=== PATIENT | female | born 1995 | race Caucasian/White ===

== ENCOUNTER 2017-09-18 21:22 | Observation (INO) | payer OTHER ==
--- NOTE | 2017-09-18 22:28 | RAD ---
UPRIGHT PORTABLE CHEST 09/18/17 HISTORY: 22-year-old female with chest pain, shortness of breath. FINDINGS: The heart size is normal. The lungs are clear. IMPRESSION: No acute intrathoracic disease. POS: [facility]
[2017-09-18 22:33] LABS: #Lymphocytes 0.9 thou/uL (1.20-3.40); #Monocytes 0.8 thou/uL (0.11-0.59); #Neutrophils 6.5 thou/uL (1.40-6.50); %Basophils 0.1 % (0.0-1.0); %Eosinophils 0.1 % (0.0-10.0); %Monocytes 9.2 % (0.0-10.0); Hematocrit 42.3 % (36.0-47.0); Mean Platelet Volume 7.2 fL (7.4-10.4); Red Blood Cell (RBC) Count 4.45 mill/uL (4.20-5.40); White Blood Cell (WBC) Count 8.2 thou/uL (4.8-10.8)
[2017-09-18] MEDS ORDERED: Lorazepam 2 MG/ML VIAL ONE (22:41)
[2017-09-18 22:42] LABS: ALT (SGPT) 107 U/L (8-55); AST (SGOT) 184 U/L (5-34); Alkaline Phosphatase 190 U/L (40-150); Anion Gap 15 mmol/L (10-20); BUN (Urea Nitrogen) 9 mg/dL (7.0-18.7); Bilirubin, Total 1.1 mg/dL (0.2-1.2); Calc. Creatinine Clearance 0 mL/min (70-130); Carbon Dioxide 23 mmol/L (22-29); Chloride 103 mmol/L (98-107); Estimated GFR-MDRD Greater than 90; Globulin 3.6 g/dL (2.4-3.5); Lipase 6 U/L (8-78)
[2017-09-18 22:46] LABS: Troponin I Less than 0.010 ng/mL (< 0.028)
[2017-09-18 23:11] LABS: Bilirubin Negative (Negative); Blood, Urine Negative (Negative); Glucose, Urine (Dipstick) Negative (Negative); Ketone, Urine > or equal to 80 mg/dL (Negative); Nitrite Negative (Negative); Protein, Urine (Dipstick) Negative (Neg-Trace)
[2017-09-19] MEDS ORDERED: Piperacillin/Tazobactam 3.375 GM VIAL ONE (01:18)
[2017-09-19] MEDS ORDERED: NS 0.9% w/ 40 MEQ KCL 1,000 ML IV SCH (01:30)
[2017-09-19] MEDS ORDERED: Piperacillin/Tazobactam 3.375 GM in Sodium Chloride 0.9% 100 ML IVPB SCH (01:30)
[2017-09-19] MEDS ORDERED: Ondansetron HCl/PF 4 MG/2 ML Vial ONE (01:37)
[2017-09-19] MEDS ORDERED: Ibuprofen 800 MG TAB ONE (01:37)
[2017-09-19] MEDS ORDERED: Fentanyl 100 MCG/2 ML VIAL SLOW IVP PRN (03:16)
[2017-09-19] MEDS ORDERED: Ondansetron HCl/PF 4 MG/2 ML Vial IVP PRN ×2 (03:17→11:58)
[2017-09-19] MEDS ORDERED: Ondansetron ODT 4 MG TAB SL PRN (03:17)
[2017-09-19 04:52] VITALS: BMI 24.2
--- NOTE | 2017-09-19 05:47 | PDOC.EVN ---
Event Note - Event Note Event Note: [id number] h&p dictated 1. Abdominal pain + Abnormal LFT 2. h/o pANIC ATTACK + cHEST TIGHTNESS 3. H/O Hypothyroidism 4. h/o anxiety plan: see orders
[2017-09-19] MEDS ORDERED: Morphine 2 MG/ML SYRINGE SLOW IVP PRN (05:48)
[2017-09-19] MEDS: Levothyroxine Sodium 25 MCG TAB PO SCH (06:04)
[2017-09-19 08:21] LABS: Salicylate Less than 8.0 mg/dL (15.0-30.0)
--- NOTE | 2017-09-19 08:23 | CT ---
PRELIMINARY REPORT/[facility]/EMERGENCY AFTER HOURS PROCEDURE: EXAM: CT Abdomen and Pelvis With Intravenous Contrast CLINICAL HISTORY: 22 years old, female; Pain; Abdominal pain; Generalized; Prior surgery; Surgery type: Cholecystectom y; Patient HX: Abd pain elevated lft TECHNIQUE: Axial computed tomography images of the abdomen and pelvis with intravenous contrast. All CT scans a t this facility use one or more dose reduction techniques, viz.: automated exposure control; ma/kV a djustment per patient size (including targeted exams where dose is matched to indication; i.e. head) ; or iterative reconstruction technique. Coronal reformatted images were created and reviewed. CONTRAST: 96 mL of [id number] administered intravenously. COMPARISON: No relevant prior studies available. FINDINGS: Lower thorax: No acute findings. ABDOMEN: Liver: Unremarkable. No mass. Gallbladder and bile ducts: There are postoperative changes of cholecystectomy. No ductal dilation. Pancreas: Unremarkable. No mass. No ductal dilation. Spleen: Unremarkable. No splenomegaly. Adrenals: Unremarkable. No mass. Kidneys and ureters: Unremarkable. No solid mass. No hydronephrosis. Stomach and bowel: Unremarkable. No obstruction. No mucosal thickening. Appendix: The appendix is unremarkable and seen best on axial image 64 of series 2. PELVIS: Bladder: Unremarkable. No mass. Reproductive: Unremarkable as visualized. ABDOMEN and PELVIS: Intraperitoneal space: Unremarkable. No free air. No significant fluid collection. Bones/joints: No acute fracture. No dislocation. Soft tissues: Unremarkable. Vasculature: There is a calcified phlebolith in the left pelvis. No abdominal aortic aneurysm. Lymph nodes: Unremarkable. No enlarged lymph nodes. IMPRESSION: No acute CT pathology. Thank you for allowing us to participate in the care of your patient. Dictated and Authenticated by: Shay Diego MD 09/19/2017 12:37 AM Central Time ([place] \T\ [place]) FINAL REPORT ABDOMEN CT WITH CONTRAST PELVIC CT WITH CONTRAST: Date: 09/18/17 HISTORY: Abdominal pain. Elevated LFTs. COMPARISON: None. TECHNIQUE: Abdomen and pelvic CT performed with IV contrast. Coronal reformatted images are submitted for inter pretation. FINDINGS/IMPRESSION: This report is in agreement with the preliminary report by Derek. No acute abnormality in the abdomen or pelvis. POS: [facility]
[2017-09-19 08:44] LABS: Amphetamine Not Detected (NotDetected); Methadone Not Detected (NotDetected); Methamphetamine Not Detected (NotDetected)
[2017-09-19 09:41] LABS: ALT (SGPT) 100 U/L (8-55); AST (SGOT) 99 U/L (5-34); Alkaline Phosphatase 160 U/L (40-150); Bilirubin, Direct 0.2 mg/dL (0.1-0.3); Bilirubin, Total 0.4 mg/dL (0.2-1.2); Protein, Total 6.2 g/dL (6.0-8.3)
[2017-09-19] MEDS: Enoxaparin Sodium 40 MG/0.4 ML SYRINGE SC SCH (09:57)
[2017-09-19] MEDS: Polyethylene Glycol 3350 17 GM Packet PO SCH ×2 (09:57→20:07)
--- NOTE | 2017-09-19 10:52 | HP ---
DATE OF ADMISSION: 09/19/2017 CHIEF COMPLAINT: Abdominal pain. HISTORY OF PRESENT ILLNESS: Patient is a 22-year-old female with past medical history of anxiety, p anic attacks, and hypothyroidism came to the ER complaining of abdominal pain. Patient said she sta rted having panic attacks since last few days. Panic attack persisted and then yesterday evening, s he started having abdominal pain. Abdominal pain is mid and upper abdominal pain, constant pain, cr amping kind of pain, associated with low-grade fever, also associated with nausea. Pain is constant pain, improved with some pain medication. Denies any fever. Denies any chills. Denies any cough. Denies any sputum production. Complains of low-grade fever. Now complains of chest pain with gan ic attack, but she said it is from the anxiety. Denies any dizziness, denies lightheadedness. PAST MEDICAL HISTORY: As per HPI. PAST SURGICAL HISTORY: Cholecystectomy. SOCIAL HISTORY: Denies smoking, denies alcohol, denies any drugs. FAMILY HISTORY: Denies any heart problems. REVIEW OF SYSTEMS: Constitutional: Positive for fever. Eyes: Denies any vision problems. Nose: Denies any rhinorrhea. Ears: Denies any hearing loss. Neck: Denies any neck pain. Cardiovascul ar System: Positive for chest tightness. Gastrointestinal: Positive for abdominal pain. Positive for nausea. Respiratory System: Positive for dyspnea. Cranial Nerve System: Denies syncope, den ies lightheadedness. Psychiatric: Positive for panic attack. Positive for anxiety. Integumentary : Denies any rash. All other review of systems are reviewed and are negative. PHYSICAL EXAMINATION: CONSTITUTIONAL/VITAL SINGS: At the time of H and P performed, blood pressure is 130/70, afebrile, p ulse ox on room air. GENERAL APPEARANCE: Patient appears comfortable. HEENT: Pupils are equal, round, and reactive to light. Anterior nares patent. Nose normal. Ears normal. Teeth intact. Tongue is moist. NECK: Supple, no JVD. CARDIOVASCULAR SYSTEM: S1 and S2 present. Regular rate and rhythm. No murmurs, no rubs, no gallop s. RESPIRATORY SYSTEM: No wheezing, no rhonchi. Breath sounds bilaterally. GASTROINTESTINAL: Abdomen is soft, nontender. No guarding, no organomegaly. Mildly tender to palp ate at right upper quadrant. No rebound tenderness. PSYCHIATRIC: Mood is appropriate at this time. CRANIAL NERVE SYSTEM: Cranial nerves intact. Follows commands. Strength intact. Sensory intact. LABORATORY DATA: At the time of H and P performed, white count 8.2, hemoglobin 14, and platelet cou nt is 209. BMP showed sodium 138, potassium 3.6, chloride 103, CO2 23, BUN 9, creatinine 0.70, AST 184, ALT 107, alkaline phosphatase 190, troponin less than 0.010, serum total protein 8, albumin 4.4 , lipase 6. ASSESSMENT AND PLAN: Patient is a [id number] female. 1. Abdominal pain plus abnormal LFTs. Plan to consult GI to evaluate the patient. CT of the abdom en was done in the ER. A preliminary report is pending at this time. We will monitor the patient c losely. We will check hepatitis panel also. 2. History of panic attacks plus chest pain. Plan to check serial cardiac enzymes. Plan to monito r the patient closely. 3. History of hypothyroidism. Continue Synthroid. TSH is slightly low than the usual. 4. Anxiety, p.r.n. anxiolytics. Case was discussed in detail with the patient.
[2017-09-19] MEDS ORDERED: Lidocaine 1% PF 5 ML VIAL ONE (11:54)
[2017-09-19] MEDS ORDERED: Promethazine HCl 25 MG/ML VIAL SLOW IVP PRN (11:58)
[2017-09-19] MEDS ORDERED: Promethazine HCl 25 MG/ML VIAL IM PRN (11:58)
--- NOTE | 2017-09-19 12:08 | PDOC.EVN ---
Event Note - Event Note Event Note: Pt seeen and examined. chart reviewed in detail including H&P,labs,scans ,meds etc. reports feeling better but still w some abdominal discomfort.constipated for days. Abdomen is soft and non distended. labs reviewed.LFT trending down Cont IVF,pain contorl,prn meds. To EGD later today by GI.appreciate input, may need ERCP for possible choledocholithiasis. Add lactulose for obstipation.Cont Miralax prn. check am labs
[2017-09-19] MEDS: Sodium Chloride 0.45% 1,000 ML IV SCH ×2 (12:53→12:54)
--- NOTE | 2017-09-19 13:01 | CON ---
HISTORY OF PRESENT ILLNESS: Patient is a 22-year-old female who was in her normal state o f health until the day of admission when she developed severe upper abdominal pain that radiated thr oughout her upper abdomen. She did feel around in her back. She describes it as bloating and press ure-like feeling. It was associated with nausea. The patient has had a longer problem with feeling of tightness in her upper chest and occasionally has problems with swallowing. She was scheduled t o undergo an upper endoscopy with Dr. Rodriguez, but because of her anxiety, she has put that off until D . She has no weight loss. She did have fever in the emergency room and this is why she was admitted. She denies any melena, hematochezia, any diarrhea. She does have chronic constipation an d Dr. Rodriguez has recently put her on MiraLax twice a day. He has also put her on pantoprazole twice d aily without much change in her symptoms. The patient underwent a cholecystectomy at age 14 for wha t was turned sludge and an abnormal HIDA scan. Presently, she is nursing a [id number]. PAST MEDICAL HISTORY: Includes anxiety disorder and cholecystectomy. MEDICATIONS: MiraLax 17 grams p.o. b.i.d., pantoprazole 40 mg p.o. b.i.d., and levothyroxine 25 mcg p.o. daily. ALLERGIES: No known allergies. SOCIAL HISTORY: She does not smoke or drink. FAMILY HISTORY: Negative for GI or liver disease. REVIEW OF SYSTEMS: CONSTITUTIONAL: Positive for fever and chills. Negative for weight loss. EYES : No blurred vision or double vision. ENT: No sore throat or earaches. CARDIOVASCULAR: Positive for chest pain. Negative for palpitations. PULMONARY: Negative for shortness of breath. Negativ e for cough. Negative for wheeze. GASTROINTESTINAL: See above. GENITOURINARY: No hematuria or d ysuria. MUSCULOSKELETAL: No joint pain or muscle weakness. SKIN: No rashes. NEUROLOGIC: No num bness or seizure activity. PHYSICAL EXAMINATION: GENERAL: Shows a well-developed, well-nourished female in no acute distress. VITAL SIGNS: Temperature 99.3, pulse 84, respiratory rate 16, and blood pressure 106/54. HEENT: Unremarkable. NECK: Supple. CHEST: Clear. CARDIOVASCULAR: Regular rate and rhythm. ABDOMEN: Soft and nontender without organomegaly or masses. Bowel sounds are present and normoacti ve. RECTAL: Deferred. EXTREMITIES: Normal. NEUROLOGIC: Nonfocal. LABORATORY DATA AND IMAGING: Shows a normal white blood cell count, normal CBC. Chemistries show p otassium of 3.3, glucose 115, AST 184, ALT 107, alkaline phosphatase of 190, total bilirubin normal at 1.1. TSH is 0.3066. Urinalysis shows ketones greater than or equal to 80. Urine test is negative. Toxicology is negative. Serology is negative for hepatitis A, B and C. Dawes screen is negative. Chest x-ray is normal. CT abdomen and pelvis shows no abnormalities, particularly no biliary dilatation. ASSESSMENT: 1. A 22-year-old female with fever, abnormal LFTs and upper abdominal pain - etiology of this is unclear. It is unlikely that she has a common duct stone as her original diagnosis for chol ecystectomy versus biliary dyskinesia. No ductal dilatation is seen on CT. This may be response to viral gastroenteritis. 2. Long history of upper abdominal pain, chest pain and dysphagia - either anxiety or possibly miriam roesophageal reflux disease versus eosinophilic esophagitis. 3. Anxiety disorder. RECOMMENDATIONS: 1. EGD this a.m. 2. Stat LFTs. 3. May need MRCP if LFTs are increasing.
--- NOTE | 2017-09-19 14:21 | OP ---
PREOPERATIVE DIAGNOSES: 1. Chest pain. 2. Dysphagia. 3. Abnormal liver function tests. 4. Fever. DESCRIPTION OF THE PROCEDURE: After informed consent was obtained, the patient was placed in the le ft lateral decubitus position. Anesthesia was administered per the Anesthesia Department. Forward- viewing endoscope was inserted into the esophagus under direct visualization with ease and passed to the second portion of the duodenum with ease. Second portion of the duodenum and duodenal bulb wer e normal. Third portion of the duodenum was normal. The ampulla was normal. The pylorus, antrum, body, fundus, and cardia were normal except full visualization could not be achieved secondary to a large amount of retained food. The esophagus was normal. A 54-Amharic Ordonez dilator was passed wi th no resistance. Reinsertion of the endoscope showed no post-dilatation changes. ASSESSMENT: 1. Large amount of retained gastric contents. 2. Normal duodenum to the third portion. 3. Normal ampulla. RECOMMENDATIONS: 1. Gastric emptying study as an outpatient. 2. Continue PPI. 3. Recheck LFTs, if decreasing, may be discharge.
[2017-09-20 04:49] LABS: ALT (SGPT) 68 U/L (8-55); AST (SGOT) 38 U/L (5-34); Alkaline Phosphatase 141 U/L (40-150); Anion Gap 12 mmol/L (10-20); BUN (Urea Nitrogen) 8 mg/dL (7.0-18.7); Bilirubin, Direct 0.2 mg/dL (0.1-0.3); Bilirubin, Total 0.4 mg/dL (0.2-1.2); Calc. Creatinine Clearance 139 mL/min (70-130); Calcium 8.5 mg/dL (7.8-10.44); Carbon Dioxide 24 mmol/L (22-29); Chloride 107 mmol/L (98-107); Estimated GFR-MDRD Greater than 90; Protein, Total 6.2 g/dL (6.0-8.3)
[2017-09-20] MEDS: Levothyroxine Sodium 25 MCG TAB PO SCH (06:31)
[2017-09-20 08:08] VITALS: BP 112/67; TEMP 98.6
[2017-09-20] MEDS: Enoxaparin Sodium 40 MG/0.4 ML SYRINGE SC SCH (10:12)
[2017-09-20] MEDS: Polyethylene Glycol 3350 17 GM Packet PO SCH (10:34)
--- NOTE | 2017-09-20 10:39 | PDOC.PN ---
- Subjective Encounter Start Date: 09/20/17 Encounter Start Time: 08:00 Subjective: abd pain is resolved, no nausea or vomiting - Objective MAR Reviewed: Yes Vital Signs & Weight: Vital Signs (12 hours) Temp Pulse Resp BP Pulse Ox 09/20/17 08:07 98.6 F 67 18 112/67 98 09/20/17 07:40 98.7 F 70 16 09/20/17 04:02 98.7 F 70 16 105/61 99 Weight Weight 158 lb 9.6 oz I&O: 09/19/17 09/20/17 09/21/17 06:59 06:59 06:59 Intake Total 620 2424 Output Total 3950 Balance 360 -2042 Result Diagrams: 09/18/17 22:05 09/20/17 04:03 Phys Exam - Physical Examination HEENT: PERRLA, moist MMs Neck: no JVD, supple Respiratory: no wheezing, no rales Cardiovascular: RRR, no significant murmur Gastrointestinal: soft, non-tender, positive bowel sounds Musculoskeletal: no edema, pulses present Neurological: non-focal, moves all 4 limbs Psychiatric: A&O x 3 Dx/Plan (1) Abdominal pain Code(s): R10.9 - UNSPECIFIED ABDOMINAL PAIN Status: Resolved Qualifiers: Abdominal location: right upper quadrant Qualified Code(s): R10.11 - Right upper quadrant pain (2) Generalized anxiety disorder Code(s): F41.1 - GENERALIZED ANXIETY DISORDER Status: Chronic (3) Hypothyroidism Code(s): E03.9 - HYPOTHYROIDISM, UNSPECIFIED Status: Chronic Qualifiers: Hypothyroidism type: unspecified Qualified Code(s): E03.9 - Hypothyroidism , unspecified (4) Elevated LFTs Code(s): R79.89 - OTHER SPECIFIED ABNORMAL FINDINGS OF BLOOD CHEMISTRY Status : Acute Comment: receding - Plan EGD was normal -: dc pt home -: to f/u with as adv -: Has f/u appt with PCP in am * .
--- NOTE | 2017-09-20 11:46 | PRG ---
DATE OF SERVICE: 09/20/2017 SUBJECTIVE: The patient is doing well. She is tolerating diet. She is having no complaints. OBJECTIVE: VITAL SIGNS: Temperature is 98.6, pulse 67, respiratory rate 18, blood pressure 112/67. CHEST: Clear. CARDIOVASCULAR: Regular rate and rhythm. ABDOMEN: Soft and nontender without organomegaly or masses. LABORATORY DATA: Shows continued normalization of her liver function tests with AST of 38, ALT of 6 8, total bilirubin of 0.4, and normal alkaline phosphatase of 141. ASSESSMENT: 1. Chest pain and dysphagia - this may be on the basis of gastric motility disorder. 2. Large amount of retained gastric contents on EGD. 3. Abnormal liver function tests - seems to be resolving. 4. Fever, resolved. RECOMMENDATIONS: 1. Stable for discharge from GI standpoint. 2. Outpatient gastric emptying scan. 3. Patient to follow up with Dr. Rodriguez and after gastric emptying scan.
--- NOTE | 2017-09-20 15:17 | DIS ---
DATE OF ADMISSION: 09/19/2017 DATE OF DISCHARGE: 09/20/2017 DISCHARGE DISPOSITION: To home. PRIMARY DISCHARGE DIAGNOSES: Abdominal pain with elevated liver function tests , resolving. SECONDARY DISCHARGE DIAGNOSES: Generalized anxiety disorder and hypothyroidism. PROCEDURES DONE DURING HOSPITALIZATION: CT of the abdomen and pelvis done on the day of admission showed no acute pathology. Upper endoscopy done by Dr. Noriega on 09/19/2017 showed large amount of retained gastric contents; otherwise, normal duodenum and ampulla were seen. H and H are 14 and 42 and platelet count 209,000. Discharge AST 38, discharge ALT 68, discharge alkaline phosphatase 141, total bilirubin 0.2, albumin was 4.4. DISCHARGE MEDICATIONS: Protonix 40 mg p.o. twice daily, MiraLax 17 grams p.o. twice daily, levothyroxine 25 mcg p.o. daily. ALLERGIES: No known drug allergies. DISCHARGE PLAN: Patient to follow up with primary care physician tomorrow and Dr. Noriega as advised for possible gastric emptying scan. BRIEF COURSE DURING HOSPITALIZATION: Patient initially came in with complaints of upper quadrant abdominal pain, which was cramping in nature. Her initial labs revealed elevated LFTs. She was placed under observation and has had consultation with Dr. Noriega. She has had upper endoscopy done, which showed large amount of gastric contents, likely due to delayed emptying. No ulcers were seen. Her liver enzymes are trending back towards baseline. The etiology of this is unclear at present. The patient has had prior cholecystectomy. Patient needs to follow up with Dr. Noriega in the outpatient setting for a gastric emptying scan. She is otherwise hemodynamically stable and has a followup appointment with her primary care physician tomorrow. Please see our [id number] documentation for the day of discharge on [employer]. [facility] DAVID HOSPITALHermann
== END 2017-09-20 11:35 | disposition home or self-care (01) ==
LOC: ERS 21:22 → 2SW 09-19 01:32
PROVIDERS: ADMIT Internal Medicine; ATTEND Internal Medicine
PROC: 0D758ZZ Dilation of Esophagus, Via Natural or Artificial Opening Endoscopic (ICD-10-PCS; principal; 2017-09-20)
DX: R10.10 Upper abdominal pain, unspecified (principal); R94.5 Abnormal results of liver function studies; E03.9 Hypothyroidism, unspecified; F41.9 Anxiety disorder, unspecified; R07.89 Other chest pain; R13.10 Dysphagia, unspecified; Z90.49 Acquired absence of other specified parts of digestive tract
CPT/HCPCS: 36415; 71010; 74177; 80048; 80053; 80074; 80076; 80306; 80307; 81003; 81025; 82553; 83690; 84439; 84443; 84484; 85025; 85379; 86308; 93005; 96361; 96365; 96366; 96367; 96368; 96375; 96376; G0378; J1650; J1956; J2001; J2060; J2405; J2543; J7050

== ENCOUNTER 2017-10-09 07:57 | Outpatient (CLI) | payer OTHER ==
--- NOTE | 2017-10-09 15:40 | NM ---
NUCLEAR MEDICINE GASTRIC EMPTYING STUDY: HISTORY: Gastroparesis. Other diseases of stomach and duodenum. FINDINGS: 2.1 mCi 99m Technetium sulfur colloid was administered orally with eggs. At 30 minutes, there was 56 % emptying, at 1 hour 54% emptying, at 2 hours 93%, at 3 hours 94%, and at 4 hours 99%. IMPRESSION: Normal gastric emptying study with a T-1/2 of 33 minutes. POS: [facility]
== END 2017-10-09 07:58 | disposition home or self-care (01) ==
LOC: NM 07:57
PROVIDERS: ATTEND Internal Medicine Gastroenterology
DX: K31.89 Other diseases of stomach and duodenum (principal)
CPT/HCPCS: 78264; A9541

== ENCOUNTER 2017-10-19 11:43 | Outpatient (CLI) | payer OTHER ==
[~2017-10-19 11:43] MED LIST: Gadobenate Dimeglumine 529 MG/1 ML (20ML VIAL) ONE
--- NOTE | 2017-10-19 19:27 | MRI ---
MRI OF ABDOMEN WITH AND WITHOUT CONTRAST: Date: 10/19/17 HISTORY: R10.9, abdominal pain. COMPARISON: Nuclear medicine gastric emptying dated 10/09/17. CT abdomen/pelvis dated 09/19/17. TECHNIQUE: Multiplanar, multisequence MRI of the abdomen performed prior to and after the intravenous administra tion of contrast. 3D rendering for MRCP was obtained. FINDINGS: There is no significant hepatic steatosis. There I a punctate, 3.0 mm, cyst within the spleen. Otherw ise, the spleen is unremarkable. No abnormal enhancing liver mass. No focal area of T2 signal abnormality. No intrahepatic or extrahepatic biliary dilatation. Normal appearance of the common bile duct. The pancreas is visualized and is normal. The SMA and SMV are patent. Kidneys are unremarkable. Adrenal glands are normal. No dilated loops of large or small bowel in the upper abdomen. The marrow signal of the skeleton is unremarkable. Gastric mucosa is not thickened. No adenopathy. IMPRESSION: 1. No acute abnormality in the abdomen. No findings to explain patient's elevated liver function christa ts. No significant hepatic steatosis. 2. No intrahepatic or extrahepatic biliary dilatation. POS: [facility]
== END 2017-10-19 11:44 | disposition home or self-care (01) ==
LOC: MRI 11:43
PROVIDERS: ATTEND Internal Medicine Gastroenterology
DX: R10.9 Unspecified abdominal pain (principal); R94.5 Abnormal results of liver function studies
CPT/HCPCS: 36415; 74183; 84703; A9579

== ENCOUNTER 2017-11-21 09:44 | Inpatient (IN) | payer OTHER ==
[2017-11-21 11:20] LABS: #Basophils 0.1 thou/uL (0.0-0.2); #Eosinphils 0.1 thou/uL (0.0-0.7); #Lymphocytes 2.1 thou/uL (1.20-3.40); #Monocytes 0.6 thou/uL (0.11-0.59); #Neutrophils 4.9 thou/uL (1.40-6.50); %Basophils 0.9 % (0.0-1.0); %Eosinophils 0.9 % (0.0-10.0); %Lymphocytes 27.5 % (21.0-51.0); %Monocytes 7.3 % (0.0-10.0); %Neutrophils 63.4 % (42.0-75.0); Hemoglobin 13.8 g/dL (12.0-16.0); Mean Corpuscular HGB CONC 33.9 g/dL (32.0-36.0); Mean Corpuscular Hemoglobin 33.1 pg (27.0-31.0); Mean Corpuscular Volume 97.5 fl (81.0-99.0); Mean Platelet Volume 6.9 fL (7.4-10.4); Platelet Count 223 thou/uL (130-400); RBC Distribution Width 10.9 % (11.5-14.5); Red Blood Cell (RBC) Count 4.16 mill/uL (4.20-5.40); White Blood Cell (WBC) Count 7.7 thou/uL (4.8-10.8)
[2017-11-21 11:51] LABS: ALT (SGPT) 54 U/L (8-55); AST (SGOT) 43 U/L (5-34); Albumin 4.8 g/dL (3.5-5.0); Alkaline Phosphatase 125 U/L (40-150); Anion Gap 19 mmol/L (10-20); BUN (Urea Nitrogen) 12 mg/dL (7.0-18.7); Bilirubin, Total 0.5 mg/dL (0.2-1.2); Calc. Creatinine Clearance 0 mL/min (70-130); Calcium 9.7 mg/dL (7.8-10.44); Carbon Dioxide 21 mmol/L (22-29); Chloride 104 mmol/L (98-107); Estimated GFR-MDRD 86; Globulin 3.5 g/dL (2.4-3.5); Glucose 66 mg/dL (70-105); Potassium 3.8 mmol/L (3.5-5.1); Protein, Total 8.3 g/dL (6.0-8.3); Sodium 140 mmol/L (136-145)
[2017-11-21 12:09] LABS: Lipase 2676 U/L (8-78)
[2017-11-21] MEDS ORDERED: Ondansetron HCl/PF 4 MG/2 ML Vial ONE (12:20)
[2017-11-21 12:31] LABS: BHCG - Serum Negative (NEGATIVE); Pregs Control Background? CLEAR/WHITE (CLR/WHITE); Pregs Control Bar Appear? YES (CONTROL BAR)
[2017-11-21] MEDS ORDERED: Morphine 4 MG/ML VIAL SLOW IVP PRN (13:28)
[2017-11-21] MEDS ORDERED: HYDROcodone/Acetaminophen 5/325 mg Tablet PO PRN (13:28)
[2017-11-21] MEDS ORDERED: Promethazine HCl 25 MG/ML VIAL IM PRN (13:28)
[2017-11-21] MEDS ORDERED: Ondansetron ODT 4 MG TAB PO PRN (13:28)
[2017-11-21] MEDS ORDERED: Sodium Chloride 0.9% 1,000 ML IV SCH (13:28)
[2017-11-21] MEDS ORDERED: HYDROcodone/Acetaminophen 7.5/325 mg Tablet PO PRN (13:28)
[2017-11-21] MEDS ORDERED: Milk Of Magnesia 30 ML UDCUP PO PRN (13:28)
[2017-11-21 14:37] VITALS: BMI 19.8
[2017-11-21] MEDS ORDERED: FLU VACC QS2017-18 36 mo. & older 0.5 ML SYRINGE IM ONE (14:45)
--- NOTE | 2017-11-21 14:46 | HP ---
DATE OF ADMISSION: 11/21/2017 CHIEF COMPLAINT: Abdominal pain. HISTORY OF PRESENT ILLNESS: This is a 22-year-old young white female with no known past medical hist ory except for chronic abdominal pain, which she has started 2-3 months ago. Patient had a history o f cholecystectomy in the past, but she has been having nonspecific abdominal pain for the past 2-3 mo nths and has been following up with one of the GI doctors over here, Dr. Rodriguez who following multiple tests. He decided to order ERCP and he suggested procedure to be done at one of the hospitals in [facility]. The patient had an ERCP done on and following ERCP which was at 3 p.m., she went home , at around 10 p.m., she started noticing severe abdominal pains at the midepigastric area radiating to the back of 9/10 intensity pain. The patient was told initially that there was complication with ERCP, 10% of the time, which shows acute pancreatitis and she was advised to return to the ER for fur ther evaluation. So, patient came to the ER after waiting for a day as the pain was getting worse an d not responding to Tylenol. Patient presented with severe nausea, unable to keep anything down and she had lipase done with elevated lipase of [address] evidence of acute pancreatitis. Dr. Rodriguez was informed about the patient's admission and patient is being admitted for further evaluation and IV h ydration and pain management. The patient is seen in the ER room. She was alert and oriented, did n ot appear to be in acute distress. Her pain was controlled with morphine given in the ER. No histor y of similar events in the past. PAST MEDICAL HISTORY: 1. Chronic abdominal pain. 2. Patient has bicuspid aortic valve. PAST SURGICAL HISTORY: Cholecystectomy. SOCIAL HISTORY: The patient is a nonsmoker. No history of alcohol, no history of illicit drug use. She lives with her . FAMILY HISTORY: No significant family history of coronary artery disease or any premature deaths in the family. REVIEW OF SYSTEMS: All 12 systems are reviewed with the patient thoroughly. The following complete review of systems was negative, unless otherwise mentioned in the HPI or below : Constitutional: Weight loss or gain, sense of well-being, ability to conduct usual activities, exerc ise tolerance. Skin/Breast: Rash, itching, changes in hair growth or loss, nail changes, breast lumps, tenderness, swelling, nipple discharge. Eyes: Vision, double vision, tearing, blind spots, pain. ENT/Mouth: Headaches (location, time of onset, duration, precipitating factors), vertigo, lightheade dness, injury. Vision, double vision, tearing, blind spots, pain, nose bleeding, colds, obstruction, discharge, dental difficulties, gingival bleeding, dentures, neck stiffness, pain, tenderness, masses in thyroid or other areas Cardiovascular: Precordial pain, substernal distress, palpitations, syncope, dyspnea on exertion, or thopnea, nocturnal paroxysmal dyspnea, edema, cyanosis, hypertension, heart murmurs, varicosities, ph lebitis, claudication. Respiratory: Pain, shortness of breath, wheezing, stridor, cough, hemoptysis, fever or night sweats Gastrointestinal: Poor appetite, dysphagia, indigestion, abdominal pain, heartburn, eructation, naus ea, vomiting, hematemesis, jaundice, constipation, or diarrhea, abnormal stools (lizet-colored, tarry, bloody, greasy, foul smelling), flatulence, hemorrhoids, recent changes in bowel habits. Genitourinary: Urgency, frequency, dysuria, nocturia, hematuria, polyuria, oliguria, unusual (or barbie nge in) color of urine, stones, hesitancy, change in size of stream, dribbling, acute retention or in continence, libido, potency. Musculoskeletal: Pain, swelling, redness or heat of muscles or joints, limitation, of motion, muscul ar weakness, atrophy, cramps. Neurologic/Psychiatric: Convulsions, paralyses, tremor, incoordination, paraesthesias, difficulties with memory of speech, sensory or motor disturbances, or muscular coordination (ataxia, tremor), emot ional problems, anxiety, depression, previous psychiatric care, unusual perceptions, hallucinations. Allergy/Immunologic: Skin rash, anemia, bleeding tendency, polydipsia, polyuria, intolerance to heat or cold. PHYSICAL EXAMINATION: VITAL SIGNS: Blood pressure is 120/80, respiration is 18, saturations 98%. GENERAL: The patient is moderately built and moderately nourished. She does not appear to be in any acute distress at this time. HEENT: Atraumatic, normocephalic. PERRLA. Extraocular movements were intact. Oral mucosa is pink a nd moist. CARDIOVASCULAR: S1, S2 normal. No murmurs, no rubs, no gallops. LUNGS: Bilateral air entry was equal. No wheezing, no crackles. ABDOMEN: Tender in the midepigastric area. No guarding was noted. Bowel sounds were diminished. N o distention. MUSCULOSKELETAL: No calf tenderness to palpate. No pedal edema. No joint redness, no joint swellin g. SKIN: No cyanosis, no edema, no rash, no pallor. CENTRAL NERVOUS SYSTEM: Cranial nerve examination II-XII intact. No focal deficit noted. PSYCHIATRIC: No signs of suicidal ideation. No signs of [place]. No signs of agitation. LYMPHATICS: No signs of any lymph node enlargement were noted. Axillary and inguinal lymph nodes we re checked and normal. LABORATORY DATA: 1. WBC 7.7, hemoglobin is 13.8, hematocrit is 40.6, platelets 223. 2. Sodium is 140, potassium 3.8, chloride 104, BUN is 12, creatinine 0.8, AST 43, ALT is 54, lipase is 2676. Urine test was negative and serum test was negative. ASSESSMENT AND PLAN: 1. Acute iatrogenic pancreatitis. 2. Severe dehydration. 3. Chronic abdominal pain. 4. History of aortic bicuspid valves. 5. Plan is to keep the patient n.p.o. except for sips of water and oral medications. We will start the patient on aggressive IV hydration with normal saline 100 mL hour and closely monitor and give a good pain control with morphine and hydrocodone. 6. We will consult privacy officer, Dr. Rodriguez who would follow with the patient. I explained to t he patient usually pancreatitis would resolve in 2-3 days and really there could be complications wit h infection and we will closely monitor for this. No need of any empiric antibiotics at this time as there are no evidence of necrotic pancreatitis. 7. Patient has severe dehydration. We will continue with IV hydration with 100 mL an hour. We will closely monitor urine output. 8. The patient has history of aortic bicuspid valves, so we will closely monitor. No evidence of an y chest pain was noted. 9. Deep venous thrombosis prophylaxis, Lovenox 40 mg subcu daily. I spent 70 minutes with this patient.
[2017-11-21] MEDS: Sodium Chloride 0.9% 1,000 ML IV SCH ×2 (18:17→21:12)
[2017-11-21] MEDS: Morphine 5 mg/5 ml in 0.9% NaCl/PF SYRINGE SLOW IVP PRN (18:19)
[2017-11-21] MEDS: Ondansetron HCl/PF 4 MG/2 ML Vial IVP PRN (18:20)
--- NOTE | 2017-11-21 18:51 | CON ---
DATE OF CONSULTATION: 11/21/2017 CHIEF COMPLAINT: Abdominal pain. HISTORY OF PRESENT ILLNESS: Ms. Marks is a 22-year-old woman, who was admitted in August with abdo huber pain and elevated liver tests. She underwent MRCP, which was negative. She underwent EGD, whi ch showed retained gastric contents; however, a follow up gastric emptying scan was normal. She cont inued to have nausea and abdominal pain and ultimately was referred to Dr. Henson in [place] and ER CP was performed. Sphincterotomy was performed and a pancreatic duct stent was placed. She had this procedure performed 2 days ago around 3:00 p.m. By around 8:00 p.m., she developed severe epigastri c pain, aching pain that radiated through to her back. She had no vomiting with this, but she did snow ve nausea. Her pain remains severe for around 3 hours and then eased up somewhat. The pain persiste d throughout the next day yesterday and did worsen when she tried to eat. She ate some oatmeal in so up but had very little otherwise. Ultimately, the pain persisted through this morning, so she came i n the emergency room for further care. She was given a couple of liters of fluid in the ER. She sti ll has not voided after that but she did urinate and have a bowel movement this morning. She has had no fever. PAST MEDICAL HISTORY: Bicuspid aortic valve. PAST SURGICAL HISTORY: Cholecystectomy 8 years ago. FAMILY HISTORY: Negative for GI malignancy. SOCIAL HISTORY: No alcohol, tobacco or drugs. She is and has two children. REVIEW OF SYSTEMS: Negative x10 systems reviewed except as stated in the history of present illness. OUTPATIENT MEDICATIONS: Lorazepam, ondansetron, polyethylene glycol, sertraline. ALLERGIES: No known drug allergies. PHYSICAL EXAMINATION: VITAL SIGNS: Temperature 97.5, pulse 79, blood pressure 113/73. GENERAL: She is in no acute distress, awake and alert and oriented x3. HEENT: Eyes have no scleral icterus. Oropharynx is clear, without lesions. NECK: No cervical or supraclavicular lymphadenopathy. LUNGS: Clear to auscultation bilaterally. HEART: Regular rate and rhythm without murmur. ABDOMEN: Soft. She is tender particularly in the epigastric region. She does not guard. Bowel beba nds are present. EXTREMITIES: No lower extremity edema. LABORATORY DATA: White blood cell count 7.7, hemoglobin is 13.8 compared to 13.0 on 10/27/2017, plat elets 223. She had creatinine 0.82, bilirubin 0.5, AST 43, ALT 54, alkaline phosphatase 125, lipase was 2676. IMPRESSION: Post-endoscopic retrograde cholangiopancreatography pancreatitis. Clinically, this is m ild. Her pain is not severe, but this worsened when she eats. She has received a couple liters of s virgil in the ER, but has not voided yet. We will bump her maintenance fluids up to 150 mL per hour. She is not particularly hemoconcentrated comparing her CBC to her previous draw a few weeks ago. He r creatinine is normal and no evidence of secondary organ failure and she appears very comfortable at this time. RECOMMENDATIONS: 1. IV fluids. 2. Consider starting a diet back in tomorrow depending on how she is feeling. 3. Follow trend of her liver tests.
[2017-11-21] MEDS: Famotidine/PF 20 mg/2ml Vial SLOW IVP SCH (21:12)
[2017-11-22] MEDS: Morphine 5 mg/5 ml in 0.9% NaCl/PF SYRINGE SLOW IVP PRN ×2 (00:16→06:26)
[2017-11-22] MEDS: Ondansetron HCl/PF 4 MG/2 ML Vial IVP PRN ×2 (00:16→06:26)
[2017-11-22] MEDS: Sodium Chloride 0.9% 1,000 ML IV SCH (04:02)
[2017-11-22 06:46] LABS: #Lymphocytes 2.1 thou/uL (1.20-3.40); #Monocytes 0.8 thou/uL (0.11-0.59); #Neutrophils 5.2 thou/uL (1.40-6.50); %Basophils 0.5 % (0.0-1.0); %Eosinophils 0.4 % (0.0-10.0); %Lymphocytes 25.6 % (21.0-51.0); %Monocytes 9.8 % (0.0-10.0); %Neutrophils 63.7 % (42.0-75.0); Hemoglobin 11.8 g/dL (12.0-16.0); Mean Corpuscular HGB CONC 32.7 g/dL (32.0-36.0); Mean Corpuscular Hemoglobin 32.4 pg (27.0-31.0); Mean Corpuscular Volume 99.2 fl (81.0-99.0); Mean Platelet Volume 6.9 fL (7.4-10.4); Platelet Count 189 thou/uL (130-400); RBC Distribution Width 10.9 % (11.5-14.5); Red Blood Cell (RBC) Count 3.64 mill/uL (4.20-5.40); White Blood Cell (WBC) Count 8.1 thou/uL (4.8-10.8)
[2017-11-22 07:06] LABS: ALT (SGPT) 36 U/L (8-55); AST (SGOT) 23 U/L (5-34); Albumin 3.8 g/dL (3.5-5.0); Alkaline Phosphatase 103 U/L (40-150); Anion Gap 20 mmol/L (10-20); BUN (Urea Nitrogen) 7 mg/dL (7.0-18.7); Bilirubin, Total 0.4 mg/dL (0.2-1.2); Calc. Creatinine Clearance 103 mL/min (70-130); Calcium 8.5 mg/dL (7.8-10.44); Carbon Dioxide 10 mmol/L (22-29); Chloride 108 mmol/L (98-107); Estimated GFR-MDRD 87; Globulin 2.9 g/dL (2.4-3.5); Lipase 724 U/L (8-78); Potassium 4.5 mmol/L (3.5-5.1); Protein, Total 6.7 g/dL (6.0-8.3); Sodium 133 mmol/L (136-145)
[2017-11-22 07:11] LABS: Glucose 56 mg/dL (70-105)
[2017-11-22] MEDS ORDERED: Dextrose 5 % And 0.9 % NaCl 1,000 ML IV SCH (08:15)
[2017-11-22] MEDS: Famotidine/PF 20 mg/2ml Vial SLOW IVP SCH ×2 (08:58→21:18)
[2017-11-22] MEDS: Enoxaparin Sodium 40 MG/0.4 ML SYRINGE SC SCH (11:29)
--- NOTE | 2017-11-22 13:25 | PRG ---
DATE OF SERVICE: 11/22/2017. SUBJECTIVE: Ms. Marks feels better today. Her pain is still present, but significantly improved. She is stretching out the time between morphine doses. She is hungry. OBJECTIVE: VITAL SIGNS: Temperature 98.4, pulse 94, blood pressure 127/66. GENERAL: She is in no acute distress, alert and oriented x3. EYES: Eyes have no scleral icterus. LUNGS: Clear to auscultation bilaterally. HEART: Regular rate and rhythm. ABDOMEN: Soft, minimal tenderness in the epigastric region without guarding. Bowel sounds are prese nt. EXTREMITIES: No lower extremity edema. LABORATORY DATA: White blood cell count 8.1, hemoglobin 11.8, platelets 189, creatinine 0.81. IMPRESSION: 1. Post-ERCP pancreatitis, clinically improving. 2. 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 She has had the pain associated with elevated liver tests and a dilated common bile duct. She is status post biliar y sphincterotomy on . RECOMMENDATIONS: 1. Clear liquid diet now. Advance to a low fat diet if she tolerates. 2. Check an abdominal x-ray tomorrow to see if the pancreatic stent is still in place or if it has p assed spontaneously which it should do some time of the next couple of weeks.
[2017-11-22] MEDS: Sodium Chloride 0.9% 10 ML ONE (21:18)
[2017-11-23] MEDS: Morphine 5 mg/5 ml in 0.9% NaCl/PF SYRINGE SLOW IVP PRN (01:02)
[2017-11-23] MEDS: Ondansetron HCl/PF 4 MG/2 ML Vial IVP PRN (01:03)
[2017-11-23 06:17] LABS: #Eosinphils 0.1 thou/uL (0.0-0.7); #Lymphocytes 2.6 thou/uL (1.20-3.40); #Monocytes 0.6 thou/uL (0.11-0.59); #Neutrophils 2.7 thou/uL (1.40-6.50); %Basophils 0.4 % (0.0-1.0); %Eosinophils 2.3 % (0.0-10.0); %Lymphocytes 43.2 % (21.0-51.0); %Monocytes 9.5 % (0.0-10.0); %Neutrophils 44.6 % (42.0-75.0); Hemoglobin 11.9 g/dL (12.0-16.0); Mean Corpuscular Hemoglobin 31.7 pg (27.0-31.0); Mean Corpuscular Volume 96.2 fl (81.0-99.0); Mean Platelet Volume 6.9 fL (7.4-10.4); Platelet Count 191 thou/uL (130-400); RBC Distribution Width 10.9 % (11.5-14.5); Red Blood Cell (RBC) Count 3.75 mill/uL (4.20-5.40); White Blood Cell (WBC) Count 6.1 thou/uL (4.8-10.8)
[2017-11-23 06:29] LABS: ALT (SGPT) 30 U/L (8-55); AST (SGOT) 17 U/L (5-34); Albumin 3.9 g/dL (3.5-5.0); Alkaline Phosphatase 100 U/L (40-150); Anion Gap 10 mmol/L (10-20); BUN (Urea Nitrogen) 5 mg/dL (7.0-18.7); Bilirubin, Total 0.5 mg/dL (0.2-1.2); Calc. Creatinine Clearance 111 mL/min (70-130); Calcium 9.2 mg/dL (7.8-10.44); Carbon Dioxide 25 mmol/L (22-29); Chloride 104 mmol/L (98-107); Estimated GFR-MDRD Greater than 90; Globulin 2.9 g/dL (2.4-3.5); Glucose 105 mg/dL (70-105); Lipase 265 U/L (8-78); Potassium 3.7 mmol/L (3.5-5.1); Protein, Total 6.8 g/dL (6.0-8.3); Sodium 135 mmol/L (136-145)
[2017-11-23] MEDS ORDERED: Sodium Chloride 0.9% 10 ML ONE ×2 (09:06→22:14)
[2017-11-23] MEDS: Famotidine/PF 20 mg/2ml Vial SLOW IVP SCH ×2 (09:10→22:10)
[2017-11-23] MEDS: Enoxaparin Sodium 40 MG/0.4 ML SYRINGE SC SCH (09:14)
--- NOTE | 2017-11-23 10:20 | RAD ---
RADIOGRAPH ABDOMEN 1 VIEW SUPINE: DATE: 11/23/17. TIME: 9:27 a.m. HISTORY: A 22-year-old female status post pancreatic stent placement. COMPARISON: No prior KUBs. FINDINGS: There are cholecystectomy clips in the right upper quadrant. There is a thin, approximately 7.8 cm l analisa, straight linear plastic catheter oriented obliquely across the medial aspect of the right upper quadrant. This was not present on the CT of 09/19/17. Its orientation is not consistent with a sten t in the common bile duct, with the superior tip located medially at midline, and the inferior tip lo cated to the right. The bowel gas pattern is normal. There is no evidence or organomegaly. IMPRESSION: 1. Interval placement of a plastic stent in the right upper quadrant. 2. Status post cholecystectomy. POS: JENNIFER
--- NOTE | 2017-11-23 13:17 | PRG ---
DATE OF SERVICE: 11/23/2017 SUBJECTIVE: Ms. Marks had some increase in abdominal pain last night and did get a dose of morphine , but is feeling somewhat better today. She has not had anything to eat today yet. She has had no n ausea or vomiting. PHYSICAL EXAMINATION: VITAL SIGNS: Temperature 98.7, pulse 70, blood pressure 113/67. GENERAL: She is in no acute distress, alert and oriented x3. HEENT: Eyes have no scleral icterus. LUNGS: Clear to auscultation bilaterally. HEART: Regular rate and rhythm without murmur. ABDOMEN: Soft, mildly distended. Bowel sounds are present. EXTREMITIES: No lower extremity edema. IMPRESSION: 1. Post-ERCP pancreatitis, clinically improving. X-ray shows the pancreatic stent to be in place. Follow up x-ray will need to be done in a couple of weeks to verify this has fallen out and if not th e stent will need to be removed endoscopically. 2. 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 She has been on a liquid diet for the last couple of months. We will restart clear liquids today and then advance t o a low fat diet if she tolerates the liquids for lunch, we will try advancing the diet this evening. RECOMMENDATIONS: Clear liquid diet for lunch and if tolerated a low fat diet for the evening meal.
--- NOTE | 2017-11-23 15:08 | PDOC.PN ---
- Subjective Encounter Start Date: 12/23/17 Encounter Start Time: 16:00 Patient is seen today, along with her at bedside, pt is doing fine, No abdominal pain. No diarrhea but passing gas. - Objective MAR Reviewed: Yes Vital Signs & Weight: Vital Signs (12 hours) Temp Pulse Resp BP Pulse Ox 11/23/17 12:50 98.7 F 70 18 113/67 11/23/17 08:00 98.4 F 57 L 16 11/23/17 07:55 98.4 F 57 L 16 111/71 100 Weight Admit Weight 134 lb Weight 134 lb I&O: 11/22/17 11/23/17 11/24/17 06:59 06:59 06:59 Intake Total 2170 3384 Balance 2170 3384 Result Diagrams: 11/23/17 05:36 11/23/17 05:36 Radiology Reviewed by me: Yes Phys Exam - Physical Examination HEENT: PERRLA, moist MMs Neck: no nodes, no JVD Respiratory: no wheezing, no rales Cardiovascular: RRR, no significant murmur Gastrointestinal: soft, non-tender Musculoskeletal: no edema, pulses present Neurological: non-focal, normal sensation Dx/Plan (1) Acute pancreatitis Code(s): K85.90 - ACUTE PANCREATITIS WITHOUT NECROSIS OR INFECTION, UNSP Status: Acute (2) Generalized anxiety disorder Code(s): F41.1 - GENERALIZED ANXIETY DISORDER Status: Chronic (3) Hypothyroidism Code(s): E03.9 - HYPOTHYROIDISM, UNSPECIFIED Status: Chronic Qualifiers: Hypothyroidism type: unspecified Qualified Code(s): E03.9 - Hypothyroidism , unspecified (4) Abdominal pain Code(s): R10.9 - UNSPECIFIED ABDOMINAL PAIN Status: Resolved Qualifiers: Abdominal location: right upper quadrant Qualified Code(s): R10.11 - Right upper quadrant pain - Plan cont current plan of care, plan discussed w/ family, out of bed/ambulate, DVT proph w/lovenox . Plan: Patient Will be continued on Clear liquids per GI today, her Lipas is trending down now it is 700's. pain control is good with morphine 4mg q 3hrs prn, she only had one dose last night, IV hydration is good, pt having good urine output. Encourged clear liquids. Continue pt on her Citalopram for anxiety. Continue pt on ompreazole. DVT prophylaxis: Lovenox 40mg sc daily. - Discharge Day Encounter end time: 16:30 Review of Systems - Review of Systems Constitutional: negative: fever, chills, sweats, weakness, malaise, other Eyes: negative: Pain, Vision Change, Conjunctivae Inflammation, Eyelid Inflammation, Redness, Other Respiratory: negative: Cough, Dry, Shortness of Breath, Hemoptysis, SOB with Excertion, Pleuritic Pain, Sputum, Wheezing Cardiovascular: negative: chest pain, palpitations, orthopnea, paroxysmal nocturnal dyspnea, edema, light headedness, other Gastrointestinal: Abdominal Pain Genitourinary: negative: Dysuria, Frequency, Incontinence, Hematuria, Retention , Other Musculoskeletal: negative: Neck Pain, Shoulder Pain, Arm Pain, Back Pain, Hand Pain, Leg Pain, Foot Pain, Other Skin: negative: Rash, Lesions, Mj, Bruising, Other Neurological: negative: Weakness, Numbness, Incoordination, Change in Speech, Confusion, Seizures, Other - Medications/Allergies Allergies/Adverse Reactions: Allergies Allergy/AdvReac Type Severity Reaction Status Date / Time No Known Allergies Allergy Verified 11/21/17 14:28 Medications: Current Medications Hydrocodone Bitart/Acetaminophen ([place] 5/325) 1 tab PO Q4H PRN PRN Reason: Moderate Pain (4-6) Hydrocodone Bitart/Acetaminophen ([place] 7.5/325) 2 tab PO Q4H PRN PRN Reason: Severe Pain (7-10) Enoxaparin Sodium (Lovenox) 40 mg SC 0900 [facility] Last Admin: 11/23/17 09:14 Dose: Not Given Famotidine (Pepcid) 20 mg SLOW IVP Q12HR [facility] Last Admin: 11/23/17 09:10 Dose: 20 mg Magnesium Hydroxide (Milk Of Magnesium) 30 ml PO DAILYPRN PRN PRN Reason: Constipation Morphine Sulfate/Sodium Chloride (Morphine 0.9% Nacl/Pf 5 Mg/5 M) 4 mg SLOW IVP Q4H PRN PRN Reason: Breakthrough Pain Last Admin: 11/23/17 01:02 Dose: 4 mg Ondansetron HCl (Zofran Odt) 4 mg PO Q6H PRN PRN Reason: Nausea/Vomiting Ondansetron HCl (Zofran) 4 mg IVP Q6H PRN PRN Reason: Nausea/Vomiting Last Admin: 11/23/17 01:03 Dose: 4 mg Promethazine HCl (Phenergan) 12.5 mg IM Q4H PRN PRN Reason: Nausea/Vomiting Last Admin: 11/23/17 02:01 Dose: 12.5 mg Sertraline HCl (Zoloft) 50 mg PO HS [facility] Last Admin: 11/22/17 21:23 Dose: 50 mg
--- NOTE | 2017-11-23 15:16 | PDOC.PN ---
- Subjective Encounter Start Date: 11/23/17 Encounter Start Time: 14:00 Tami is seen today, alert and oriented. No other Concenr snoted. pt Tolerated clear liquids. - Objective MAR Reviewed: Yes Vital Signs & Weight: Vital Signs (12 hours) Temp Pulse Resp BP Pulse Ox 11/23/17 12:50 98.7 F 70 18 113/67 11/23/17 08:00 98.4 F 57 L 16 11/23/17 07:55 98.4 F 57 L 16 111/71 100 Weight Admit Weight 134 lb Weight 134 lb I&O: 11/22/17 11/23/17 11/24/17 06:59 06:59 06:59 Intake Total 2170 3384 Balance 2170 3384 Result Diagrams: 11/23/17 05:36 11/23/17 05:36 Radiology Reviewed by me: Yes Phys Exam - Physical Examination HEENT: PERRLA, moist MMs Neck: no nodes, no JVD Respiratory: no wheezing, no rales Cardiovascular: RRR, no significant murmur Gastrointestinal: soft, non-tender Musculoskeletal: no edema, pulses present Neurological: non-focal, normal sensation Dx/Plan (1) Acute pancreatitis Code(s): K85.90 - ACUTE PANCREATITIS WITHOUT NECROSIS OR INFECTION, UNSP Status: Acute (2) Generalized anxiety disorder Code(s): F41.1 - GENERALIZED ANXIETY DISORDER Status: Chronic (3) Hypothyroidism Code(s): E03.9 - HYPOTHYROIDISM, UNSPECIFIED Status: Chronic Qualifiers: Hypothyroidism type: unspecified Qualified Code(s): E03.9 - Hypothyroidism , unspecified (4) Abdominal pain Code(s): R10.9 - UNSPECIFIED ABDOMINAL PAIN Status: Resolved Qualifiers: Abdominal location: right upper quadrant Qualified Code(s): R10.11 - Right upper quadrant pain - Plan * . Plan: Patient Will be continued on Clear liquids per GI today and will try Low fat diet later in the evening, her Lipas is trending down now it is 200's. pain control is good with morphine 4mg q 3hrs prn, she only had one dose last night, IV hydration is good, pt having good urine output. Encourged clear liquids. Continue pt on her Citalopram for anxiety. Continue pt on ompreazole. DVT prophylaxis: Lovenox 40mg sc daily. - Discharge Day Encounter end time: 14:35 Review of Systems - Review of Systems Constitutional: negative: fever, chills, sweats, weakness, malaise, other Eyes: negative: Pain, Vision Change, Conjunctivae Inflammation, Eyelid Inflammation, Redness, Other ENT: negative: Ear Pain, Ear Discharge, Nose Pain, Nose Discharge, Nose Congestion, Mouth Pain, Mouth Swelling, Throat Pain, Throat Swelling, Other Respiratory: negative: Cough, Dry, Shortness of Breath, Hemoptysis, SOB with Excertion, Pleuritic Pain, Sputum, Wheezing Cardiovascular: negative: chest pain, palpitations, orthopnea, paroxysmal nocturnal dyspnea, edema, light headedness, other Gastrointestinal: negative: Nausea, Vomiting, Abdominal Pain, Diarrhea, Constipation, Melena, Hematochezia, Other Genitourinary: negative: Dysuria, Frequency, Incontinence, Hematuria, Retention , Other Musculoskeletal: negative: Neck Pain, Shoulder Pain, Arm Pain, Back Pain, Hand Pain, Leg Pain, Foot Pain, Other Skin: negative: Rash, Lesions, Mj, Bruising, Other Neurological: negative: Weakness, Numbness, Incoordination, Change in Speech, Confusion, Seizures, Other - Medications/Allergies Allergies/Adverse Reactions: Allergies Allergy/AdvReac Type Severity Reaction Status Date / Time No Known Allergies Allergy Verified 11/21/17 14:28 Medications: Current Medications Hydrocodone Bitart/Acetaminophen ([place] 5/325) 1 tab PO Q4H PRN PRN Reason: Moderate Pain (4-6) Hydrocodone Bitart/Acetaminophen ([place] 7.5/325) 2 tab PO Q4H PRN PRN Reason: Severe Pain (7-10) Enoxaparin Sodium (Lovenox) 40 mg SC 0900 [facility] Last Admin: 11/23/17 09:14 Dose: Not Given Famotidine (Pepcid) 20 mg SLOW IVP Q12HR [facility] Last Admin: 11/23/17 09:10 Dose: 20 mg Magnesium Hydroxide (Milk Of Magnesium) 30 ml PO DAILYPRN PRN PRN Reason: Constipation Morphine Sulfate/Sodium Chloride (Morphine 0.9% Nacl/Pf 5 Mg/5 M) 4 mg SLOW IVP Q4H PRN PRN Reason: Breakthrough Pain Last Admin: 11/23/17 01:02 Dose: 4 mg Ondansetron HCl (Zofran Odt) 4 mg PO Q6H PRN PRN Reason: Nausea/Vomiting Ondansetron HCl (Zofran) 4 mg IVP Q6H PRN PRN Reason: Nausea/Vomiting Last Admin: 11/23/17 01:03 Dose: 4 mg Promethazine HCl (Phenergan) 12.5 mg IM Q4H PRN PRN Reason: Nausea/Vomiting Last Admin: 11/23/17 02:01 Dose: 12.5 mg Sertraline HCl (Zoloft) 50 mg PO HS [facility] Last Admin: 11/22/17 21:23 Dose: 50 mg
[2017-11-23] MEDS: Sodium Chloride 0.9% 10 ML ONE (22:17)
[2017-11-24] MEDS: Enoxaparin Sodium 40 MG/0.4 ML SYRINGE SC SCH (08:25)
[2017-11-24] MEDS: Famotidine/PF 20 mg/2ml Vial SLOW IVP SCH (09:49)
[2017-11-24 12:22] VITALS: BP 122/81; TEMP 97.3
--- NOTE | 2017-11-24 14:27 | DIS ---
DATE OF ADMISSION: 11/21/2017 DATE OF DISCHARGE: 11/24/2017 ADMITTING DIAGNOSIS: Acute pancreatitis. DISCHARGE DIAGNOSIS: Acute pancreatitis. SECONDARY DIAGNOSES: 1. Moderate dehydration. 2. Intractable nausea and vomiting and chronic abdominal pain. [employer]IST: Involved in the care is Dr. Nguyen from Gastroenterology. HISTORY OF PRESENT ILLNESS AND HOSPITAL COURSE: In brief, this is a 22-year-old young white female, who came in with a past medical history of chronic abdominal pain that started 2-3 months ago with a history of cholecystectomy in the past. She was being seen by one of the gastroenterologists, Dr. Manuelito kenney, who suggested the patient to get an ERCP at [facility], and the patient had a complication to the ER CP procedure and developed acute pancreatitis. The patient had a pancreatic stent placed and also snow d a sphincter of Oddi insertion. The patient then developed a severe abdominal pain with elevated li pase up to 2000s. The patient was kept n.p.o. and was slowly started on clear liquids. Her pain has improved and her lipase level has slowly come down to normal, and on the day of discharge, it was 20 0. The patient was seen by GI during this admission and suggested the patient to be started on low f at diet, which she tolerated very well, and this morning she was able to tolerate pain without any pa in medication. She requested to go home. The patient was discharged home following GI approval. Th e patient was stable on the day of discharge. DISCHARGE PHYSICAL EXAMINATION: VITAL SIGNS: Blood pressure is 122/81, heart rate is 92, respiratory rate is 18, saturation 97%. GENERAL: The patient is moderately built and moderately nourished. Does not appear to be in acute d istress. CARDIOVASCULAR: S1, S2 normal. No murmurs, rubs, or gallops. LUNGS: Bilateral air entry was equal. No wheezing, no crackles. ABDOMEN: Soft, nontender, no guarding, no rebound tenderness. Bowel sounds normal. MUSCULOSKELETAL: No calf tenderness. No pedal edema. No joint tenderness, no joint swelling. SKIN: No cyanosis, no erythema, no rash, no pallor. CENTRAL NERVOUS SYSTEM: Cranial nerve examination II-XII intact. No focal deficits were noted. DISCHARGE MEDICATIONS: 1. Lorazepam. 2. Zofran 4 mg p.o. b.i.d. 3. Sertraline 50 mg p.o. at bedtime. DISCHARGE INSTRUCTIONS: Continue activity as tolerated. Advised to follow up with Dr. Rodriguez, GI, in 1-2 weeks. Advised patient continue with the diet as suggested by the GI. Advised to return back to the ER if the pain gets worse or any worsening nausea and vomiting. I spen t 35 minutes with this patient on the day of discharge.
== END 2017-11-24 14:36 | disposition home or self-care (01) | DRG 393 ==
LOC: ERS 09:44 → 3SE 14:26
PROVIDERS: ADMIT Family Medicine; ATTEND Family Medicine
DX: K91.89 Other postprocedural complications and disorders of digestive system (principal); K85.90 Acute pancreatitis without necrosis or infection, unspecified; E86.0 Dehydration; K83.8 Other specified diseases of biliary tract; F41.1 Generalized anxiety disorder; E03.9 Hypothyroidism, unspecified; G89.29 Other chronic pain; Z90.49 Acquired absence of other specified parts of digestive tract; X58.XXXA Exposure to other specified factors, initial encounter; Y92.234 Operating room of hospital as the place of occurrence of the external cause
CPT/HCPCS: 36415; 74018; 80053; 83690; 84703; 85025; 96361; 96374; A4216; J1650; J2270; J2405; J2550; S0028

== ENCOUNTER 2017-12-16 16:43 | Outpatient (CLI) | payer OTHER | END 2017-12-16 16:44 | disposition home or self-care (01) | LOC: BICRAD 16:43 | PROVIDERS: ATTEND Internal Medicine Gastroenterology | DX: R10.11 Right upper quadrant pain (principal); K83.8 Other specified diseases of biliary tract; R94.5 Abnormal results of liver function studies; Z90.49 Acquired absence of other specified parts of digestive tract | CPT/HCPCS: 74018 ==

== ENCOUNTER 2018-12-13 14:36 | Outpatient (CLI) | payer OTHER ==
--- NOTE | 2018-12-13 18:22 | ULT ---
OB ULTRASOUND: Date: 12/13/18 HISTORY: anatomy, size and dates. FINDINGS: A single, live intrauterine gestation is seen, with measurements corresponding to an estimated gestat ional age of 18 weeks/3 days and XIMENA at 05/13/19. Estimated weight measures 244 gm, or 9 oz. measurements are as follows: BPD: 4.03 cm, 18 weeks/2 days HC: 15.19 cm, 18 weeks/2 days AC: 13.19 cm, 18 weeks/5 days FL: 2.75 cm, 18 weeks/3 days heart rate measures 134 beats/minute. Placenta is anteriorly located without evidence of placen ta previa. Amniotic fluid is within normal limits. Three vessel cord, cord insertion, kidneys, bladder, stomach, four chamber heart, lateral ventr icles, cerebellum, spine, lips/nose, and upper/lower extremities are visualized. No definite an omalies are seen. IMPRESSION: Single, live intrauterine of 18 weeks/3 days estimated gestational age and XIMENA at 05/13/19. POS: JENNIFER
== END 2018-12-13 14:37 | disposition home or self-care (01) ==
LOC: BICULT 14:36
PROVIDERS: ATTEND Family Medicine
DX: Z34.82 Encounter for supervision of other normal pregnancy, second trimester (principal); Z3A.18 18 weeks gestation of pregnancy
CPT/HCPCS: 76805

== ENCOUNTER 2019-03-02 10:35 | Day surgery (SDC) | payer OTHER ==
[2019-03-02] MEDS ORDERED: Iron Sucrose Complex 500 MG in Sodium Chloride 0.9% 250 ML 250 ML IVPB SCH (11:30)
[2019-03-02 11:46] VITALS: BMI 29.0
== END 2019-03-02 17:47 | disposition home or self-care (01) ==
LOC: L&D/OP 10:35
PROVIDERS: ATTEND Family Medicine
DX: Z13.0 Encounter for screening for diseases of the blood and blood-forming organs and certain disorders involving the immune mechanism (principal)
CPT/HCPCS: 96361; 96365; 96366; 99282; J1756; J7050

== ENCOUNTER 2019-05-03 08:50 | Day surgery (SDC) | payer OTHER ==
[2019-05-03 09:28] VITALS: BP 127/78; TEMP 98.3; BMI 29.5
--- NOTE | 2019-05-04 02:37 | SS ---
DATE OF ADMISSION: 05/03/2019 DATE OF DISCHARGE: 05/03/2019 REGULAR PHYSICIAN: Aide Payne MD EVALUATING PHYSICIAN: Satnam Robins MD CHIEF COMPLAINT: Contractions at home. HISTORY OF PRESENT ILLNESS: Ms. Marks is a 24-year-old G3, P2-0-0-2 with an estimated date of confinement of 05/11/2019, who presents complaining of regular uterine contractions over the last 24 hours. She denies ruptured membranes or vaginal bleeding. Her care has been with Dr. Aide Payne and is reportedly uncomplicated. PAST OBSTETRICAL HISTORY: Vaginal delivery x2, both at term. PAST MEDICAL HISTORY: Chronic Lyme disease as well as bicuspid aortic valve. Also anxiety. PAST SURGICAL HISTORY: Cholecystectomy and ERCP. CURRENT MEDICATIONS: 1. vitamins. 2. Zoloft 100 mg daily. 3. Zithromax 250 mg daily. ALLERGIES: NO KNOWN ALLERGIES. SOCIAL HISTORY: Denies tobacco or alcohol use. Denies drug use. FAMILY HISTORY: Unremarkable. REVIEW OF SYSTEMS: She denies nausea, vomiting, fever, chills, ruptured membranes, or vaginal bleeding. PHYSICAL EXAMINATION: VITAL SIGNS: In triage, her vital signs are stable. She is afebrile. Her blood pressure is reassuring. GENERAL: She is pleasant and in no acute distress. ABDOMEN: Soft, nontender, and gravid. PELVIC: Initially shows the cervix to be 2 cm dilated, 70% effaced with the vertex posterior per labor nurse's exam. heart rate tracing is reassuring with spontaneous accelerations. Irregular contractions were seen. The patient is allowed to walk and I examined her cervix at that time. No cervical change was noted. ASSESSMENT: 1. Term intrauterine . 2. No evidence of active labor at this time. PLAN: The patient will be dismissed to home. Labor precautions were reviewed in detail with her. She states she has a followup appointment with Dr. Payne this week. Dr. Payne was notified. Job ID: [id number]
== END 2019-05-03 11:46 | disposition home or self-care (01) ==
LOC: L&D/OP 08:50
PROVIDERS: ATTEND Family Medicine
DX: O47.9 False labor, unspecified (principal); O98.819 Other maternal infectious and parasitic diseases complicating pregnancy, unspecified trimester; A69.20 Lyme disease, unspecified; O99.340 Other mental disorders complicating pregnancy, unspecified trimester; F41.9 Anxiety disorder, unspecified; O99.89 Other specified diseases and conditions complicating pregnancy, childbirth and the puerperium; Q23.1 Congenital insufficiency of aortic valve; Z79.899 Other long term (current) drug therapy
CPT/HCPCS: 99283

== ENCOUNTER 2019-05-06 00:41 | Inpatient (IN) | payer OTHER ==
[2019-05-06 01:06] VITALS: BMI 29.8
[2019-05-06] MEDS ORDERED: NS / Oxytocin 40 units/1000ml 1,000 ML IV PRN (01:37)
[2019-05-06] MEDS ORDERED: Ibuprofen 800 MG TAB PO PRN (01:37)
[2019-05-06] MEDS ORDERED: HYDROcodone/Acetaminophen 5/325 mg Tablet PO PRN ×3 (01:37→11:11)
[2019-05-06] MEDS ORDERED: Methylergonovine 0.2 MG/ML VIAL IM PRN (01:37)
[2019-05-06] MEDS ORDERED: Promethazine HCl 25 MG/ML VIAL IM PRN ×2 (01:37→03:06)
[2019-05-06] MEDS ORDERED: Acetaminophen 500 MG TAB PO PRN (01:37)
[2019-05-06] MEDS ORDERED: Zolpidem Tartrate 5 MG TAB PO PRN (01:37)
[2019-05-06] MEDS ORDERED: Meperidine HCl/PF 25 MG/ML VIAL IM/IV PRN (01:37)
[2019-05-06] MEDS ORDERED: Butorphanol Tartrate 1 MG/ML VIAL SLOW IVP PRN (01:37)
[2019-05-06] MEDS ORDERED: Lidocaine 1% (PF) 30 ML VIAL SC PRN (01:37)
[2019-05-06] MEDS ORDERED: Ondansetron PF 4 MG/2 ML Vial IVP PRN ×3 (01:37→11:11)
--- NOTE | 2019-05-06 01:43 | PDOC.LDHP ---
Labor and Delivery H&P Chief complaint: contractions HPI: 24 yo WF presents c/o UCs q 3-4 mins since 6Pm. Denies SROM. Current gestational age (weeks): 39 Due date: 05/11/19 Dating criteria: last menstrual period Grav: 3 Para: 2 OB History Details: PNC with Dr. Gely Payne. Current complications: none Abnormal US findings: No Past Medical History: Lyme disease, anxiety Current medications: pre- vitamins, other (Zmax, Zoloft) Previous surgical history: cholecystectomy Allergies/Adverse Reactions: Allergies Allergy/AdvReac Type Severity Reaction Status Date / Time No Known Allergies Allergy Verified 11/21/17 14:28 Social history: none - Physical Exam Vital signs reviewed and normal: yes General: resting Heart: RRR Lungs: CTAB Abdomen: gravid Extremeties: trace edema FHT: category 1 [employer] contractions every: q 2-3 mins - Vaginal Exam cm dilated: 4 Effacement: 75% Station: -2 - OB Labs GBS: negative - Assessment L&D Assessment: term patient in labor - Plan Plan: admit to L&D, informed consent obtained, anesthesia consult for pain management, other (Dr. Payne notified)
[2019-05-06] MEDS ORDERED: Lactated Ringer's 1,000 ML IV SCH (01:45)
[2019-05-06] MEDS ORDERED: NS w/ Oxytocin 10 units 500 ML IV SCH (01:45)
[2019-05-06 02:10] LABS: Hemoglobin 12.7 g/dL (12.0-16.0); Mean Corpuscular HGB CONC 35.1 g/dL (32.0-36.0); Mean Corpuscular Hemoglobin 32.6 pg (27.0-31.0); Mean Corpuscular Volume 92.9 fL (78.0-98.0); Mean Platelet Volume 8.9 fL (7.4-10.4); Platelet Count 187 thou/uL (130-400); RBC Distribution Width 11.7 % (11.5-14.5); Red Blood Cell (RBC) Count 3.91 mill/uL (4.20-5.40); White Blood Cell (WBC) Count 12.1 thou/uL (4.8-10.8)
[2019-05-06] MEDS ORDERED: Fentanyl 4 mcg/Bup 0.1% Cadd 100 ML ONE ×2 (02:28→09:59)
[2019-05-06] MEDS ORDERED: Lidocaine 1.5%/Epinephrine 1:200,000 5 ML AMPUL IJ ONE (02:29)
[2019-05-06 02:50] LABS: HBSAg Index 0.29 S/CO (0-0.99); Hep B Surf Ag Non-Reactive S/CO (NonReactive)
[2019-05-06] MEDS ORDERED: Naloxone HCl 0.4 mg/ml Vial IVP PRN ×2 (03:06)
[2019-05-06] MEDS ORDERED: diphenhydrAMINE 50 MG/ML VIAL IVP PRN (03:06)
[2019-05-06] MEDS ORDERED: Lactated Ringer's 500 ML IV PRN (03:06)
[2019-05-06] MEDS ORDERED: Acetaminophen 325 MG TAB PO PRN (03:06)
[2019-05-06] MEDS ORDERED: ePHEDrine/0.9% NaCl/PF SYRINGE 50 mg/10 ml SLOW IVP PRN (03:06)
[2019-05-06] MEDS: Lactated Ringer's 1,000 ML IV SCH (03:09)
[2019-05-06] MEDS ORDERED: Fentanyl 4 mcg/Bupivacaine 0.1% Cassette 100 ML EPIDURAL SCH (03:15)
[2019-05-06] MEDS ORDERED: Communication Order-Pharmacy FS SCH (03:15)
[2019-05-06 04:05] LABS: Syphilis Antibody Nonreactive (Nonreactive); Syphilis Antibody Index 0.09 S/CO (<1.00 Non-Reactive)
[2019-05-06] MEDS ORDERED: Bisacodyl 10 MG SUPP PR PRN (11:11)
[2019-05-06] MEDS ORDERED: Milk Of Magnesia 30 ML UDCUP PO PRN (11:11)
[2019-05-06] MEDS ORDERED: Lanolin Ointment 7 GM TUBE TOP PRN (11:11)
[2019-05-06] MEDS ORDERED: Acetaminophen/Codeine 30-300mg Tablet PO PRN (11:11)
[2019-05-06] MEDS ORDERED: traMADol HCl 50 MG TAB PO PRN (11:11)
[2019-05-06] MEDS ORDERED: Benzocaine-Menthol 82.5 ML CAN TOP PRN (11:11)
[2019-05-06] MEDS ORDERED: NS / Oxytocin 40 units/1000ml 1,000 ML IV SCH (11:11)
[2019-05-06] MEDS ORDERED: Preparation H Ointment 28 GM TUBE PR PRN (11:11)
[2019-05-06] MEDS ORDERED: diphenhydrAMINE 25 MG CAP PO PRN (11:11)
[2019-05-06] MEDS: Ibuprofen 800 MG TAB PO SCH ×3 (14:44→22:38)
[2019-05-06] MEDS: Acetaminophen 325 MG TAB PO PRN ×2 (15:03→22:37)
[2019-05-06] MEDS: Docusate Calcium (SURFAK) 240 MG CAP PO SCH (22:33)
[2019-05-07] MEDS: Acetaminophen 325 MG TAB PO PRN ×2 (06:01→11:14)
--- NOTE | 2019-05-07 06:52 | PDOC.PP ---
Post Progress Note Post Day #: 1 Subjective: Patient states she is feeling well. Established well. Less bleeding than a period. Ambulating, tolerating PO, passing flatus. PO intake tolerated: yes Flatus: yes Ambulation: yes Vital Signs (12 hours) Temp Pulse Resp BP Pulse Ox 05/07/19 05:00 98.3 F 61 17 118/60 05/06/19 20:00 98.1 F 58 L 17 115/58 L 100 Weight Weight 91.626 kg - Physical Examination General: NAD Cardiovascular: no m/r/g, RRR Respiratory: clear to auscultation bilaterally, non-labored breathing Abdominal: + bowel sounds, appropriately TTP Fundus firm & at: 2 cm below umbilicus Neurological: no gross focal deficits Psychiatric: A&Ox3, normal affect Result Diagrams: 05/06/19 02:02 Additional Labs: Post Labs Blood Type O POSITIVE 05/06/19 02:02 Hep Bs Antigen Non-Reactive S/CO (NonReactive) 05/06/19 02:02 - Assessment/Plan # PP day 1 - delivered 05/06 at 1100 - pain well-controlled, tolerating PO, ambulating, less bleeding than menses - would like to go home today - does not take motrin because upsets stomach, does not take iron because of constipation - will send tylenol, colace Addendum - Attending - Attending Attestation Date/Time: 05/07/19 0800 I personally evaluated the patient and discussed the management with Dr. Lezama I agree with the History, Examination, Assessment and Plan documented above with any addition or exceptions noted below.
[2019-05-07] MEDS: Ibuprofen 800 MG TAB PO SCH ×2 (07:33→11:15)
[2019-05-07] MEDS ORDERED: Prenatal Vitamin 1 TAB PO SCH (09:00)
[2019-05-07] MEDS: Docusate Calcium (SURFAK) 240 MG CAP PO SCH (09:24)
[2019-05-07 09:36] VITALS: BP 109/70; TEMP 98.2
[2019-05-07] MEDS: Lactated Ringer's 1,000 ML IV SCH (14:46)
== END 2019-05-07 15:45 | disposition home or self-care (01) | DRG 807 ==
LOC: L&D/OP 00:41 → L&D 02:01 → 3SW 13:30
PROVIDERS: ADMIT Family Medicine; ATTEND Family Medicine
PROC: 10E0XZZ Delivery of Products of Conception, External Approach (ICD-10-PCS; principal; 2019-05-06)
PROC: 10907ZC Drainage of Amniotic Fluid, Therapeutic from Products of Conception, Via Natural or Artificial Opening (ICD-10-PCS; 2019-05-06)
DX: O99.344 Other mental disorders complicating childbirth (principal); K59.00 Constipation, unspecified; O99.62 Diseases of the digestive system complicating childbirth; O69.81X0 Labor and delivery complicated by cord around neck, without compression, not applicable or unspecified; F41.1 Generalized anxiety disorder; Z3A.39 39 weeks gestation of pregnancy; Z90.49 Acquired absence of other specified parts of digestive tract; Z37.0 Single live birth
CPT/HCPCS: 36415; 51702; 85027; 86780; 86850; 86900; 86901; 87340; 99285; J2405; J2590; J3490

== ENCOUNTER 2022-10-03 13:26 | Emergency (ER) | payer OTHER ==
[2022-10-03] MEDS ORDERED: Lorazepam 2 MG/ML VIAL ONE (14:05)
[2022-10-03] MEDS ORDERED: Promethazine HCl 25 MG in Sodium Chloride 0.9% 50 ML IVPB SCH (15:15)
== END 2022-10-03 16:15 | disposition home or self-care (01) ==
LOC: ERS 13:26
DX: F41.0 Panic disorder [episodic paroxysmal anxiety] (principal); R11.0 Nausea
CPT/HCPCS: 93005; 94760; 96374; 96375; J2060; J2550

== ENCOUNTER 2024-09-07 11:06 | Emergency (ER) | payer OTHER, SELFPAY ==
[2024-09-07] MEDS ORDERED: Ketorolac Tromethamine 30 MG (1 mL) VIAL ONE (11:52)
[2024-09-07 12:09] LABS: #Basophils 0.05 10x3/uL (0.0-0.2); %Eosinophils 2.1 % (0.0-10.0); %Lymphocytes 46.7 % (21.0-51.0); %Monocytes 8.6 % (0.0-10.0); %Neutrophils 41.4 % (42.0-75.0); Hematocrit 39.1 % (36.0-47.0); Hemoglobin 13.1 g/dL (12.0-16.0); Mean Corpuscular HGB CONC 33.5 g/dL (32.0-36.0); Mean Corpuscular Hemoglobin 29.9 pg (27.0-31.0); Mean Corpuscular Volume 89.3 fL (78.0-98.0); Mean Platelet Volume 9.8 fL (7.4-10.4); Platelet Count 231 10x3/uL (130-400); RBC Distribution Width 11.9 % (11.5-14.5); Red Blood Cell (RBC) Count 4.38 mill/uL (4.20-5.40)
[2024-09-07 12:37] LABS: ALT (SGPT) 10 U/L (8-55); AST (SGOT) 12 U/L (5-34); Albumin 3.9 g/dL (3.5-5.0); Alkaline Phosphatase 97 U/L (40-110); Anion Gap 9 mmol/L (10-20); BUN (Urea Nitrogen) 9 mg/dL (7.0-18.7); Bilirubin, Total 0.4 mg/dL (0.2-1.2); Calc. Creatinine Clearance 0 mL/min (70-130); Carbon Dioxide 27 mmol/L (22-29); Chloride 107 mmol/L (98-107); Estimated GFR 103; Glucose 89 mg/dL (70-105); Potassium 4.2 mmol/L (3.5-5.1); Protein, Total 6.9 g/dL (6.0-8.3); Sodium 139 mmol/L (136-145)
[2024-09-07 12:40] LABS: Troponin I Less than 0.010 ng/mL (< 0.028)
== END 2024-09-07 13:47 | disposition home or self-care (01) ==
LOC: ERS 11:06
DX: R20.2 Paresthesia of skin (principal); R53.83 Other fatigue
CPT/HCPCS: 70450; 71045; 72125; 80053; 84484; 85025; 93005; 96374; J1885